=== PATIENT | female | born 1945 | race Caucasian/White ===

== ENCOUNTER → 2018-11-15 | Outpatient (CLI) | payer BC, MEDICARE ==
--- NOTE | 2018-11-15 14:46 | Diagnostic Imaging Report ---
EXAMINATION: CHEST 2 VIEWS INDICATION: Concern for pulmonary fibrosis COMPARISON: None FINDINGS: TUBES and LINES: None. LUNGS: The lungs are hyperinflated. Mild biapical pleural parenchymal thickening/scarring. There are bilateral upper lobe predominant emphysematous changes. Bilateral lower lobe bronchiectasis. No focal consolidation or pulmonary edema. PLEURA: No pleural effusion or pneumothorax. HEART AND MEDIASTINUM: The cardiomediastinal silhouette is normal in size and contour. BONES AND SOFT TISSUES: Surgical clips in the bilateral breasts and axillae. Mild degenerative changes of the visualized spine. UPPER ABDOMEN: No free air under the diaphragm. IMPRESSION: Hyperinflated lungs with emphysematous changes and bilateral lower lobe bronchiectasis. No focal pneumonia or pulmonary edema. Signed by: Rey Sung MD on 11/15/2018 2:42 PM
== END ==
LOC: RAD 13:43
PROVIDERS: ATTEND Internal Medicine Critical Care Medicine
DX: J84.10 Pulmonary fibrosis, unspecified (principal)
CPT/HCPCS: 71046